=== PATIENT | female | born 1995 | race Two or more races ===

== ENCOUNTER 2019-01-26 13:07 | Emergency (ER) | payer BC ==
[~2019-01-26] VITALS: Ht 154.9 cm; Wt 65.5 kg
[2019-01-26 14:11] LABS: BASOPHILS # (AUTO) 0.03 x10^3/uL (0-0.1); BASOPHILS % (AUTO) 0 % (0-1); EOSINOPHILS # (AUTO) 0.01 x10^3/uL (0-0.4); EOSINOPHILS % (AUTO) 0 % (1-7); LYMPHOCYTES # (AUTO) 1.87 x10^3/uL (1-3.4); LYMPHOCYTES % (AUTO) 15 % (22-44); MD NO; MEAN CORPUSCULAR HEMOGLOBIN 29.7 pg (27.0-34.8); MEAN CORPUSCULAR HGB CONC 33.1 g/dL (32.4-35.8); MEAN CORPUSCULAR VOLUME 89.6 fL (80-100); MEAN PLATELET VOLUME 8.3 fL (7.4-10.4); MONOCYTES # (AUTO) 0.66 x10^3/uL (0.2-0.8); MONOCYTES % (AUTO) 5 % (2-9); NEUTROPHILS # (AUTO) 9.84 x10^3/uL (1.8-6.8); NEUTROPHILS % (AUTO) 79 % (42-75); PLATELET COUNT 365 x10^3/uL (130-400); RED BLOOD COUNT 5.58 x10^6/uL (3.82-5.3); RED CELL DISTRIBUTION WIDTH 13.1 % (9.6-15.2)
[2019-01-26 14:20] LABS: ALANINE AMINOTRANSFERASE 22 U/L (12-78); ANION GAP 15 mmol/L (5-15); CALCIUM 10.5 mg/dL (8.5-10.1); CHLORIDE 104 mmol/L (98-107); CREATININE 0.83 mg/dL (0.55-1.02)
[2019-01-26 14:23] LABS: ALKALINE PHOSPHATASE 74 U/L (45-117); BILIRUBIN,TOTAL 1.1 mg/dL (0.2-1.0); TOTAL PROTEIN 9.5 g/dL (6.4-8.2)
--- NOTE | 2019-01-26 16:25 | NUR ---
PT WC'D TO ROOM T2 W/ C/O LIGHTHEADEDNESS/NAUSEA/NUMBNESS AND TINGLING X 2 WKS. PT DENIES ANY MEDICAL PROBLEMS. [facility] MONITORS APPLIED.
[2019-01-26 17:11] LABS: HCG UR SG 1.016 (1.003-1.030); MICROSCOPIC NOT IND
[2019-01-26 17:12] LABS: CULTURE INDICATED? NO
--- NOTE | 2019-01-26 17:36 | NUR ---
PT RESTING ON GURNEY. NADN. BUENO.
[2019-01-26 18:31] VITALS: BP 109/65
--- NOTE | 2019-01-26 18:32 | NUR ---
PT RESTING ON GURNEY. NADN. BUENO.
== END 2019-01-26 18:49 | disposition home or self-care (01) ==
LOC: ED 17:21
DX: R55 Syncope and collapse (principal); E86.0 Dehydration
CPT/HCPCS: 36415; 71045; 80053; 81003; 81025; 85025; 93005; 99284